=== PATIENT | female | born 1955 | race Caucasian/White ===

== ENCOUNTER → 2021-05-01 | Outpatient (CLI) | payer MEDICARE, BC ==
--- NOTE | 2021-05-01 12:44 | KCIC ---
MR LUMBAR SPINE WO [id number] Date: 05/01/2021 10:15 AM Indication: RADICULOPATHY. Chronic LBP and leg pain for yrs. Comparison: None. Technique: Multi-planar multi-weighted magnetic resonance imaging of the lumbar spine was performed w ithout intravenous contrast using the standard lumbar spine protocol. FINDINGS: Trace anterolisthesis at L3-4. No acute fracture. Moderate multilevel degenerative disc desiccation a nd disc height loss. Degenerative endplate edema at L1-2, L2-3, and L4-5. The conus terminates at a normal level. No abnormal signal is seen within the visualized distal spina l cord. No clumping of intrathecal nerve roots. No soft tissue abnormality in the visualized abdomen or pelvis. T12-L1: No disc bulge. No facet arthropathy. No significant spinal stenosis or neural foraminal narro wing. L1-L2: Disc bulge. Mild facet arthropathy. No significant spinal stenosis. Mild bilateral neural fora ankur narrowing. L2-L3: Disc bulge. Moderate right and severe left facet arthropathy. Prominent dorsal epidural fat. M ild spinal stenosis. Mild to moderate bilateral neural foraminal narrowing. L3-L4: Disc bulge with left far lateral protrusion. Severe facet arthropathy. Prominent dorsal epidur al fat. Moderate to severe spinal stenosis. Moderate left lateral recess narrowing. Mild right and mo derate left neural foraminal narrowing. L4-L5: Disc bulge with right far lateral protrusion. Mild facet arthropathy. Prominent dorsal epidura l fat. Mild spinal stenosis. Moderate right and mild left lateral recess narrowing. Moderate bilatera l neural foraminal narrowing. L5-S1: Disc bulge with bilateral far lateral protrusions. Mild facet arthropathy. No spinal stenosis. Mild lateral recess narrowing. Moderate to severe right and moderate left neural foraminal narrowing . IMPRESSION: Moderate to severe lumbar spondylosis, detailed level by level above. Electronically signed by: Jonathon Hensley MD (05/01/2021 12:42 PM) [id number]
== END ==
LOC: KCIC MRI 10:02
PROVIDERS: ATTEND Family Medicine
DX: M47.27 Other spondylosis with radiculopathy, lumbosacral region (principal); M51.27 Other intervertebral disc displacement, lumbosacral region; M48.8X7 Other specified spondylopathies, lumbosacral region; M48.07 Spinal stenosis, lumbosacral region; E88.2 Lipomatosis, not elsewhere classified; R60.0 Localized edema; M51.37 Other intervertebral disc degeneration, lumbosacral region
CPT/HCPCS: 72148